=== PATIENT | male | born 1980 | race Caucasian/White ===

== ENCOUNTER → 2020-07-03 | Day surgery (SDC) | payer OTHER ==
[~2020-07-03] MED LIST: ACETAMINOPHEN500 M1 PO; COLACE100 MG PO; MIRALAX17 GM PO; NEURONTIN300 MG PO; OXY-IR 5MG5 MG PO; VIBRAMYCIN100 MG PO
== END | disposition home or self-care (01) ==
LOC: FAS 09:47
DX: K60.2 Anal fissure, unspecified (principal); M54.16 Radiculopathy, lumbar region; F17.200 Nicotine dependence, unspecified, uncomplicated; E66.9 Obesity, unspecified; Z68.31 Body mass index [BMI] 31.0-31.9, adult; Z88.6 Allergy status to analgesic agent; Z98.890 Other specified postprocedural states
CPT/HCPCS: J0585-JG; J1170; J2250; J2704; J7120

== ENCOUNTER 2020-12-27 19:18 | Emergency (ER) | payer OTHER ==
[2020-12-27] MEDS ORDERED: CYCLOBENZAPRINE10 MG PO (20:42)
[2020-12-27] MEDS ORDERED: MEDROL 4MG DOSEP4 MG PO (20:42)
== END 2020-12-27 20:53 | disposition home or self-care (01) ==
LOC: FER 19:18
DX: S39.012A Strain of muscle, fascia and tendon of lower back, initial encounter (principal); M51.34 Other intervertebral disc degeneration, thoracic region; Z88.6 Allergy status to analgesic agent; X58.XXXA Exposure to other specified factors, initial encounter
CPT/HCPCS: 72128; J1100

== ENCOUNTER → 2021-02-01 | Day surgery (SDC) | payer OTHER ==
[~2021-02-01] VITALS: Ht 175.3 cm; Wt 98.0 kg
[~2021-02-01] MED LIST changes: +CYCLOBENZAPRINE10 MG PO; +MEDROL 4MG DOSEP4 MG PO
== END | disposition home or self-care (01) ==
LOC: FAS 01-15 07:30
DX: K60.2 Anal fissure, unspecified (principal); E66.9 Obesity, unspecified; Z88.6 Allergy status to analgesic agent; F17.210 Nicotine dependence, cigarettes, uncomplicated; Z68.31 Body mass index [BMI] 31.0-31.9, adult
CPT/HCPCS: J0585; J0690; J1170; J2250; J2405; J2704; J3010; J7120